=== PATIENT | female | born 1995 | race Caucasian/White ===

== ENCOUNTER → 2018-07-09 | Outpatient (CLI) | payer OTHER ==
[2018-07-09 13:22] LABS: BACTERIA (WET MOUNT) 3+ BACTERIA SEEN; EPITHELIALS (WET MOUNT) 3+ EPITHELIALS SEEN; RBCS (WET MOUNT) RARE RBCS SEEN; T.VAGINALIS (WET MOUNT) NO TRICHOMONAS SEEN; WBCS (WET MOUNT) FEW WBCS SEEN; YEAST (WET MOUNT) YEAST SEEN
[2018-07-09 15:07] LABS: CHLAM PCR NOT DETECTED (NOT DETECT); GON PCR NOT DETECTED (NOT DETECT)
== END ==
LOC: LAB 12:36
PROVIDERS: ATTEND Nurse Practitioner Acute Care
DX: N89.8 Other specified noninflammatory disorders of vagina (principal); R10.84 Generalized abdominal pain; R30.0 Dysuria
CPT/HCPCS: 87086; 87210; 87491; 87591

== ENCOUNTER → 2018-07-29 | Outpatient (CLI) | payer OTHER, MEDICAID ==
[2018-07-29 12:24] LABS: ABSOLUTE BASOPHILS # (AUTO) 0.1 10^3/uL (0.0-0.2); ABSOLUTE EOSINOPHILS # (AUTO) 0.1 10^3/uL (0.0-0.6); ABSOLUTE LYMPHOCYTES (AUTO) 2.2 10^3/uL (0.5-4.7); ABSOLUTE MONOCYTES (AUTO) 0.6 10^3/uL (0.1-1.4); ABSOLUTE NEUT (AUTO) 4.1 10^3/uL (1.7-8.2); BASOPHILS % (AUTO) 0.8 % (0-2); EOSINOPHILS % (AUTO) 1.2 % (0-6); HEMATOCRIT 41.8 % (36.0-47.0); HEMOGLOBIN 13.9 g/dL (12.0-15.5); LYMPHOCYTES % (AUTO) 30.8 % (13-45); MEAN CORPUSCULAR HEMOGLOBIN 27.4 pg (27.0-33.4); MEAN CORPUSCULAR HGB CONC 33.3 g/dL (32.0-36.0); MEAN CORPUSCULAR VOLUME 82 fl (80-97); PLATELET COUNT 295 10^3/uL (150-450); RED BLOOD COUNT 5.08 10^6/uL (3.72-5.28); RED CELL DISTRIBUTION WIDTH 14.8 % (11.5-14.0); SEGMENTED NEUTROPHILS % (AUTO) 58.2 % (42-78); TOTAL CELLS COUNTED % (AUTO) 100 %; WHITE BLOOD COUNT 7.1 10^3/uL (4.0-10.5)
--- NOTE | 2018-07-29 12:35 | RADIOLOGY REPORT (SQ) ---
EXAM DESCRIPTION: ACUTE ABDOMEN SERIES COMPLETED DATE/TIME: 07/29/2018 12:12 pm REASON FOR STUDY: UNSPECIFIED ABD. PAIN R10.9 UNSPECIFIED ABDOMINAL PAIN COMPARISON: AP chest 07/12/2013 CT abdomen pelvis 07/13/2013 NUMBER OF VIEWS: Three views. TECHNIQUE: Frontal chest, supine abdomen and upright abdomen radiographic images acquired. LIMITATIONS: None. FINDINGS: CHEST: Lungs clear of infiltrates. Cardiac silhouette size, mahesh unremarkable. No pleura l effusion or pneumothorax. FREE AIR: None. No abnormal gas collections. BOWEL GAS PATTERN: Nonspecific nonobstructive bowel gas pattern with a area in single bowel loop in t he mid epigastrium. There are anastomotic doc in the pelvis without rectal air bubble. CALCIFICATIONS: No suspicious calcifications. HARDWARE: Surgical clips in the pelvis from bowel surgery and anastomoses. Post total colectomy by ronal bonilla. SOFT TISSUES: No gross mass or suggestion of organomegaly. BONES: No acute fracture. No worrisome bone lesions. OTHER: No other significant finding. IMPRESSION: Single air-filled loop of bowel in the mid epigastrium, similar compared to CT 07/13/2013 . Post total abdominal colectomy with surgical clips in the pelvis No acute cardiopulmonary findings TECHNICAL DOCUMENTATION: JOB ID: [id number] [employer]- All Rights Reserved Reading location - IP/workstation name: [email or web address]
[2018-07-29 12:57] LABS: ALANINE AMINOTRANSFERASE 54 U/L (9-52); ALBUMIN 4.6 g/dL (3.5-5.0); ALKALINE PHOSPHATASE 62 U/L (38-126); ANION GAP 14 (5-19); ASPARTATE AMINO TRANSFERASE 33 U/L (14-36); BILIRUBIN,DIRECT 0.3 mg/dL (0.0-0.4); BILIRUBIN,TOTAL 0.6 mg/dL (0.2-1.3); BLOOD UREA NITROGEN 12 mg/dL (7-20); CALCIUM 9.9 mg/dL (8.4-10.2); CARBON DIOXIDE 25 mmol/L (22-30); CHLORIDE 106 mmol/L (98-107); GLUCOSE 84 mg/dL (75-110); POTASSIUM 4.9 mmol/L (3.6-5.0); SODIUM 144.8 mmol/L (137-145); TOTAL PROTEIN 7.8 g/dL (6.3-8.2)
[2018-07-29 14:04] LABS: CHLAM PCR NOT DETECTED (NOT DETECT); GON PCR NOT DETECTED (NOT DETECT)
== END ==
LOC: OD 11:32
PROVIDERS: ATTEND Nurse Practitioner Family
DX: R10.9 Unspecified abdominal pain (principal)
CPT/HCPCS: 36415; 74022; 80053; 85025; 87086; 87491; 87591

== ENCOUNTER 2018-08-05 06:48 | Emergency (ER) | payer OTHER, MEDICAID ==
--- NOTE | 2018-08-05 08:30 | ER Document Report ---
ED General - General Chief Complaint: Abdominal Pain Stated Complaint: ABDOMINAL PAIN Time Seen by Provider: 08/05/18 08:09 Primary Care Provider: JHOANA ABEBE NP [NO LOCAL MD] - Follow up as needed Notes: 23-year-old female with remote history of a colectomy as a child presents to the emergency department for stomach pains, vaginal pains x4 weeks. She was seen at an urgent care approximately 1 month ago diagnosed with a UTI and was on 2 different antibiotics. She is still complaining of the same type of symptoms. She historically has taken probiotics when she had abdominal pain and when she did this morning she vomited, started crying, then vomited again. She is sexually active, last activity 4 weeks ago, but has been with multiple partners recently. She denies fevers or chills, complains of nausea, states her abdominal pain is epigastric and suprapubic, denies vaginal discharge. She states that it still feels like the UTI is there even though she is been treated and had a follow-up urinalysis which was negative. Last BM today. She denies headache or neck stiffness, sore throat, dizziness or lightheadedness, back pain or flank pain, numbness or tingling extremities. No other complaints TRAVEL OUTSIDE OF THE [place] IN LAST 30 DAYS: No - Related Data Allergies/Adverse Reactions: sulfamethoxazole [From Septra] Allergy (Verified 04/16/14 03:04) trimethoprim [From Septra] Allergy (Verified 04/16/14 03:04) tegaderm Adverse Reaction (Uncoded 04/16/14 03:04) Past Medical History - Social History Smoking Status: Unknown if Ever Smoked Family History: None, Other - FAP Past Surgical History: Reports: Hx Abdominal Surgery - colon removed 5 yrs ago - Immunizations Immunizations up to date: Yes Review of Systems - Review of Systems Constitutional: See HPI EENT: See HPI Cardiovascular: See HPI Respiratory: See HPI Gastrointestinal: See HPI Genitourinary: See HPI Female Genitourinary: See HPI Musculoskeletal: No symptoms reported Skin: No symptoms reported Hematologic/Lymphatic: No symptoms reported Neurological/Psychological: See HPI Physical Exam - Vital signs Vitals: Temp Pulse Resp BP Pulse Ox 98.1 F 108 H 16 132/100 H 96 08/05/18 07:01 08/05/18 07:01 08/05/18 07:01 08/05/18 07:01 08/05/18 07:01 - Notes Notes: PHYSICAL EXAMINATION: Reviewed vital signs and charting by RN GENERAL: Alert, interacts well. No acute distress. HEAD: Normocephalic, atraumatic. EYES: Pupils equal and round. Extraocular movements intact. ENT: Oral mucosa moist, tongue midline. NECK: Full range of motion. Supple. Trachea midline. LUNGS: Clear to auscultation bilaterally, no wheezes, rales, or rhonchi. No respiratory distress. HEART: Regular rate and rhythm. No murmur ABDOMEN: soft, epigastric tenderness and suprapubic tenderness. Non-distended. Bowel sounds present. no McBurney's point tenderness, no Spear sign. EXTREMITIES: Moves all 4 extremities spontaneously. No edema, No cyanosis. Normal distal neurovascular exam BACK: No CVAT NEUROLOGIC: Oriented and appropriate. Normal speech. PSYCH: Normal affect, normal mood. SKIN: Warm, dry, normal turgor. No rashes or lesions noted. Course - Re-evaluation Re-evalutation: 08/05/18 09:36 Pelvic exam performed, no cervical motion tenderness, cervix visualized and at the 10 to 12 o'clock position was a 3 mm area of erythema slightly friable. Green discharge and a small amount of blood coming from the os. Lab work has all returned and patient is negative for a urinary tract infection, trichomonas negative, no yeast infection. Gonorrhea and chlamydia still pending. I will discuss with the patient if she wants to get treated prophylactically or if she wants to wait for results. Because patient is having bleeding from cervical os and her last menstrual period was 2 weeks ago I will order a transvaginal ultrasound with Doppler. 08/05/18 09:42 Patient wants to get treated prophylactically for gonorrhea and chlamydia. 08/05/18 12:43 Transvaginal ultrasound unremarkable. At this time I will refer her to [facility] for follow-up on testing. I did notice what appeared to be a lesion on her cervix so unclear if this is from an STI or other etiology. There is no emergent condition at this time, no TOA or ectopic visualized on ultrasound, patient does not have a surgical abdomen, no other concerns at this time. Stable for discharge. - Vital Signs Vital signs: Temp Pulse Resp BP Pulse Ox 98.0 F 92 16 119/81 98 08/05/18 11:36 08/05/18 11:36 08/05/18 11:36 08/05/18 11:36 08/05/18 11:36 - Laboratory Result Diagrams: 08/05/18 08:50 08/05/18 08:50 Laboratory results interpreted by me: 08/05/18 08/05/18 08/05/18 08:50 08:50 08:50 RBC 5.56 H RDW 15.2 H AST 41 H ALT 69 H Urine Protein 30 H Urine Ketones TRACE H Discharge - Discharge Clinical Impression: Pelvic pain Abdominal pain Qualifiers: Abdominal location: lower abdomen, unspecified Qualified Code(s): R10.30 - Lower abdominal pain, unspecified Vomiting Qualifiers: Vomiting type: unspecified Vomiting Intractability: non-intractable Nausea presence: with nausea Qualified Code(s): R11.2 - Nausea with vomiting, unspecified Condition: Good Disposition: HOME, SELF-CARE Additional Instructions: You are seen in the emergency department this morning for abdominal and pelvic pain. Is unclear why you are having the symptoms because she did not have a urinary tract infection. So were negative for trichomonas and for a yeast infection. You did not have bacterial vaginosis. Your gonorrhea and chlamydia are negative. It is important to follow-up with your primary care doctor to follow-up for this problem as there is no acute reason to keep you in the hos pital today. If you develop intractable vomiting, intractable nausea, severe abdominal pain, severe vaginal bleeding, copious vaginal discharge with severe pelvic pain, you are unable to urinate at all, bowel incontinence, or have any other concerns please immediately return to the emergency department. I have provided referral for you to [facility]. You can call them to arrange for follow-up. Referrals: JHOANA ABEBE NP [NO LOCAL MD] - Follow up as needed [facility] [Provider Group] - Follow up as needed
[2018-08-05 09:00] LABS: ABSOLUTE EOSINOPHILS # (AUTO) 0.1 10^3/uL (0.0-0.6); ABSOLUTE LYMPHOCYTES (AUTO) 1.8 10^3/uL (0.5-4.7); ABSOLUTE MONOCYTES (AUTO) 0.9 10^3/uL (0.1-1.4); ABSOLUTE NEUT (AUTO) 7.5 10^3/uL (1.7-8.2); BASOPHILS % (AUTO) 0.2 % (0-2); EOSINOPHILS % (AUTO) 0.8 % (0-6); HEMATOCRIT 45.7 % (36.0-47.0); HEMOGLOBIN 15.3 g/dL (12.0-15.5); LYMPHOCYTES % (AUTO) 17.3 % (13-45); MEAN CORPUSCULAR HEMOGLOBIN 27.4 pg (27.0-33.4); MEAN CORPUSCULAR HGB CONC 33.4 g/dL (32.0-36.0); MEAN CORPUSCULAR VOLUME 82 fl (80-97); MONOCYTES % (AUTO) 8.3 % (3-13); PLATELET COUNT 281 10^3/uL (150-450); RED BLOOD COUNT 5.56 10^6/uL (3.72-5.28); RED CELL DISTRIBUTION WIDTH 15.2 % (11.5-14.0); SEGMENTED NEUTROPHILS % (AUTO) 73.4 % (42-78); TOTAL CELLS COUNTED % (AUTO) 100 %; WHITE BLOOD COUNT 10.3 10^3/uL (4.0-10.5)
[2018-08-05 09:18] LABS: APPEARANCE,URINE SLIGHTLY-CLOUDY; BILIRUBIN,URINE NEGATIVE (NEGATIVE); COLOR,URINE AMBER; GLUCOSE, URINE NEGATIVE (NEGATIVE); KETONES,URINE TRACE mg/dL (NEGATIVE); LEUKOCYTE ESTERASE,URINE NEGATIVE (NEGATIVE); NITRITE,URINE NEGATIVE (NEGATIVE); PROTEIN,URINE 30 mg/dL (NEGATIVE); UROBILINOGEN,URINE NEGATIVE mg/dL (<2.0)
[2018-08-05 09:24] LABS: ALANINE AMINOTRANSFERASE 69 U/L (9-52); ALBUMIN 4.6 g/dL (3.5-5.0); ALKALINE PHOSPHATASE 68 U/L (38-126); ANION GAP 13 (5-19); ASPARTATE AMINO TRANSFERASE 41 U/L (14-36); BILIRUBIN,DIRECT 0.3 mg/dL (0.0-0.4); BILIRUBIN,TOTAL 0.6 mg/dL (0.2-1.3); BLOOD UREA NITROGEN 10 mg/dL (7-20); CALCIUM 9.8 mg/dL (8.4-10.2); CARBON DIOXIDE 25 mmol/L (22-30); CHLORIDE 106 mmol/L (98-107); GLUCOSE 99 mg/dL (75-110); LIPASE 107.7 U/L (23-300); SODIUM 143.7 mmol/L (137-145); TOTAL PROTEIN 7.9 g/dL (6.3-8.2)
[2018-08-05 09:32] LABS: T.VAGINALIS (WET MOUNT) NO TRICHOMONAS SEEN; WBCS (WET MOUNT) RARE WBCS SEEN; YEAST (WET MOUNT) NO YEAST SEEN
[2018-08-05 09:33] LABS: RBCS (WET MOUNT) FEW RBCS SEEN
[2018-08-05] MEDS ORDERED: ONDANSETRON ODT 4 MG TAB (6 TAB/ER DISP) PO PRN (09:38)
[2018-08-05] MEDS ORDERED: AZITHROMYCIN 250 MG TABLET PO ONE (09:44)
[2018-08-05] MEDS ORDERED: CEFTRIAXONE 1 GM/D5W RTU 1 GM/50 ML RTUPB IV ONE (09:44)
[2018-08-05 11:00] LABS: CHLAM PCR NOT DETECTED (NOT DETECT); GON PCR NOT DETECTED (NOT DETECT)
--- NOTE | 2018-08-05 12:22 | RADIOLOGY REPORT (SQ) ---
EXAM DESCRIPTION: U/S NON OB PEL TV W/DOPPLER COMPLETED DATE/TIME: 08/05/2018 12:07 pm REASON FOR STUDY: pelvic pain COMPARISON: None. TECHNIQUE: Dynamic and static grayscale images acquired of the pelvis via transvaginal approach and recorded on PACS. Additional selected color Doppler and spectral images recorded. LIMITATIONS: None. FINDINGS: UTERUS: Contour normal. No mass. ENDOMETRIAL STRIPE: No focal or generalized thickening. No masses. CERVIX: Small nabothian cysts. RIGHT OVARY AND DOPPLER: Normal size. No worrisome masses. Normal follicular pattern. Normal arteri al vascular flow without evidence for torsion. LEFT OVARY AND DOPPLER: Normal size. No worrisome masses. Normal follicular pattern. Normal arteria l vascular flow without evidence for torsion. FREE FLUID: Trace free fluid adjacent to the left ovary. OTHER: No other significant finding. MEASUREMENTS: UTERUS: 8.5 x 5.8 x 4.1 cm ENDOMETRIAL STRIPE: 11 mm RIGHT OVARY: 3.3 x 2.5 x 2.2 cm LEFT OVARY: 4.3 x 2.2 x 2.5 cm IMPRESSION: Relatively unremarkable study. Trace free fluid adjacent to the left ovary. Ovaries lo ok normal, however. TECHNICAL DOCUMENTATION: JOB ID: [id number] [employer]- All Rights Reserved Rev-08/15 Reading location - IP/workstation name: [email or web address]
[2018-08-05 12:56] VITALS: BP 124/77
== END 2018-08-05 12:58 | disposition home or self-care (01) ==
LOC: ER 06:48
DX: R10.2 Pelvic and perineal pain (principal); R10.13 Epigastric pain; R11.2 Nausea with vomiting, unspecified; Z90.49 Acquired absence of other specified parts of digestive tract; Z87.440 Personal history of urinary (tract) infections; Z88.1 Allergy status to other antibiotic agents
CPT/HCPCS: 99284; 96365; 36415; 87210; 83690; 85025; 81025; 80053; 81001; 87491; 87591; 76830; 93976; J0696

== ENCOUNTER 2018-08-11 08:47 | Emergency (ER) | payer OTHER, MEDICAID ==
[2018-08-11] MEDS ORDERED: ONDANSETRON HCL INJ/PF 4 MG/2 ML SDV IV ONE ×2 (09:16→09:38)
--- NOTE | 2018-08-11 09:18 | ER Document Report ---
ED Medical Screen (RME) - General Chief Complaint: Abdominal Pain Stated Complaint: ABDOMINAL PAIN Time Seen by Provider: 08/11/18 09:14 Mode of Arrival: Ambulatory Information source: Patient Notes: 23-year-old female presented to ED with her stomach upset vomited x1 feels like she needs to vomit now. States she cannot walk with her heart racing. She states she is lost a lot of weight over a little bit of time. 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 She does not drink smoke or use any drugs she goes to [facility] and lives with her parents. She is alert oriented respirations regular and unlabored heart rate is between 140 and 160 apically. I have greeted and performed a rapid initial assessment of this patient. A comprehensive ED assessment and evaluation of the patient, analysis of test results and completion of medical decision making process will be conducted by an additional ED providers. Dictation of this chart was performed using voice recognition software; therefore, there may be some unintended grammatical errors. TRAVEL OUTSIDE OF THE [place] IN LAST 30 DAYS: No - Related Data Allergies/Adverse Reactions: sulfamethoxazole [From Septra] Allergy (Verified 08/11/18 08:50) trimethoprim [From Novra] Allergy (Verified 08/11/18 08:50) tegaderm Adverse Reaction (Uncoded 08/11/18 08:50) Past Medical History - Social History Frequency of alcohol use: None Drug Abuse: None Renal/ Medical History: Denies: Hx Peritoneal Dialysis Past Surgical History: Reports: Hx Abdominal Surgery - colon removed 5 yrs ago - Immunizations Immunizations up to date: Yes Physical Exam - Vital signs Vitals: Temp Pulse Resp BP Pulse Ox 97.6 F 165 H 19 62/36 L 98 08/11/18 09:07 08/11/18 09:07 08/11/18 09:07 08/11/18 09:07 08/11/18 09:07 Course - Vital Signs Vital signs: Temp Pulse Resp BP Pulse Ox 97.6 F 165 H 19 62/36 L 98 08/11/18 09:07 08/11/18 09:07 08/11/18 09:07 08/11/18 09:07 08/11/18 09:07
[2018-08-11] MEDS: NORMAL SALINE 1000 ML 1,000 ML IV PRN ×2 (09:30→10:53)
--- NOTE | 2018-08-11 09:31 | ER Document Report ---
ED General - General Chief Complaint: Abdominal Pain Stated Complaint: ABDOMINAL PAIN Time Seen by Provider: 08/11/18 09:14 Mode of Arrival: Ambulatory TRAVEL OUTSIDE OF THE [place] IN LAST 30 DAYS: No - HPI Patient complains to provider of: Shortness of breath, abdominal pain Notes: 83-year-old female presents with increasing shortness of breath and decreased exercise tolerance for the last 3 days. She says this is also associated with lower abdominal pain 10/10 throbbing in nature without radiation nothing makes it better or worse. Patient has a history of an anastomosis leak and she says this feels similar to her previous anastomosis leak Patient states she is now so short of breath when she walks she is unable to go across her kitchen. Required to sit down and lay down to catch her breath. Patient denies chest pain with this profound shortness of breath. Patient has no history of cardiac disease, thyroid disease. 23-year-old female did have multiple surgeries as a pediatric patients with movement of her large bowel. Has history of leakage after the anastomosis approximately 1 decade ago. Patient states she had similar symptoms to this when she had an infection in her abdomen. Patient was seen on Friday in the emergency department diagnosed with ovarian cyst as etiology of some of her pain with some free fluid in her abdomen. - Related Data Allergies/Adverse Reactions: sulfamethoxazole [From Novra] Allergy (Verified 08/11/18 08:50) trimethoprim [From Novra] Allergy (Verified 08/11/18 08:50) tegaderm Adverse Reaction (Uncoded 08/11/18 08:50) Past Medical History - General Information source: Patient - Social History Smoking Status: Never Smoker Frequency of alcohol use: None Drug Abuse: None Family History: None, Other - FAP Patient has suicidal ideation: No Patient has homicidal ideation: No Renal/ Medical History: Denies: Hx Peritoneal Dialysis Past Surgical History: Reports: Hx Abdominal Surgery - colon removed 5 yrs ago - Immunizations Immunizations up to date: Yes Review of Systems - Review of Systems Notes: REVIEW OF SYSTEMS: CONSTITUTIONAL: -fevers, -chills EENT: -eye pain, -difficulty swallowing, -nasal congestion CARDIOVASCULAR: -chest pain, -syncope. RESPIRATORY: -cough, positive SOB GASTROINTESTINAL: positive abdominal pain, positive nausea, -vomiting, -diarrhea GENITOURINARY: -dysuria, -hematuria MUSCULOSKELETAL: -back pain, -neck pain SKIN: -rash or skin lesions. HEMATOLOGIC: -easy bruising or bleeding. LYMPHATIC: -swollen, enlarged glands. NEUROLOGICAL: -altered mental status or loss of consciousness, -headache, - neurologic symptoms PSYCHIATRIC: -anxiety, -depression. ALL OTHER SYSTEMS REVIEWED AND NEGATIVE. Physical Exam - Vital signs Vitals: Temp Pulse Resp BP Pulse Ox 97.6 F 165 H 19 62/36 L 98 08/11/18 09:07 08/11/18 09:07 08/11/18 09:07 08/11/18 09:07 08/11/18 09:07 - Notes Notes: PHYSICAL EXAMINATION: GENERAL: Well-appearing, well-nourished and in severe acute distress. HEAD: Atraumatic, normocephalic. EYES: Pupils equal round and reactive to light, extraocular movements intact, sclera anicteric, conjunctiva are normal. ENT: nares patent, oropharynx clear without exudates. Moist mucous membranes. NECK: Normal range of motion, supple without lymphadenopathy LUNGS: Breath sounds clear to auscultation bilaterally and equal. No wheezes rales or rhonchi. HEART: tachycardia and rhythm without murmurs ABDOMEN: Soft, tender throughout lower abdomen no guarding, no rebound. No masses appreciated. EXTREMITIES: Normal range of motion, no pitting or edema. No cyanosis. NEUROLOGICAL: Cranial nerves grossly intact. Normal speech, normal gait. Normal sensory and motor exams. PSYCH: Normal mood, normal affect. SKIN: Warm, Dry, normal turgor, no rashes or lesions noted. Course - Re-evaluation Re-evalutation: 08/11/18 09:45 23-year-old male presents found tachycardia. Blood pressure repeated systolic is 115 no hypotension. Will initiate fluid resuscitation antiemetics extensive lab work-up and imaging study. 08/11/18 13:03 Patient found to have profound kidney injury, leukocytosis. Patient's heart rate is greatly improved after 2 L normal saline solution per Calcium mildly elevated as well. Fluid should correct as per Given patient's symptoms of abdominal pain. CAT scan abdomen pelvis performed. CAT scan has some critical findings of possible air collection near the anastomosis of her ileoanal anastomosis. Given her leukocytosis, tachycardia and acute kidney injury. Concern for possible endorgan damage from sepsis. Will initiate antibiotic therapy with ceftriaxone and metronidazole vancomycin. Consult our local surgeons here. In reviewing the images case and labs. They state this may be outside the spectrum of there especially. Recommend evaluation by colorectal employment specialist/program manager. Resection with patient she has had all of her surgeries performed at the [facility]. Consult [facility]. Discussed case with rectal surgeon [facility]. Patient will be admitted to a floor bed on their service. Will make sure to include CT imaging. - Vital Signs Vital signs: Temp Pulse Resp BP Pulse Ox 97.6 F 165 H 29 H 128/89 H 97 08/11/18 09:07 08/11/18 09:07 08/11/18 11:00 08/11/18 10:27 08/11/18 10:27 - Laboratory Result Diagrams: 08/11/18 09:30 08/11/18 09:30 Laboratory results interpreted by me: 08/11/18 08/11/18 08/11/18 09:30 09:30 09:30 WBC 13.4 H RBC 6.66 H Hgb 18.1 H Hct 54.1 H RDW 15.1 H Plt Count 453 H Absolute Neutrophils 9.5 H Absolute Monocytes 1.6 H Potassium 5.1 H Chloride 95 L Carbon Dioxide 19 L Anion Gap 25 H BUN 29 H Creatinine 1.91 H Est GFR ( Amer) 40 L Est GFR (Non-Af Amer) 33 L Glucose 179 H Calcium 10.9 H AST 51 H ALT 65 H Total Protein 10.2 H Albumin 5.7 H TSH 5.63 H - EKG Interpretation by Me EKG shows normal: Sinus rhythm Rate: Tachycardia Rhythm: NSR Additional EKG results interpreted by me: 08/11/18 09:49 Patient has prolonged QTC at 451, no ST elevations or depressions, no pathologic T wave inversions Discharge - Discharge Clinical Impression: Acute kidney injury, Leak of anastomosis between gastrointestinal structures Leukocytosis Qualifiers: Leukocytosis type: other Qualified Code(s): D72.828 - Other elevated white blood cell count Condition: Stable Disposition: Tertiary-Other Admitting Provider: [facility] Unit Admitted: Medical Floor
[2018-08-11 09:48] LABS: ABSOLUTE BASOPHILS # (AUTO) 0.1 10^3/uL (0.0-0.2); ABSOLUTE EOSINOPHILS # (AUTO) 0.1 10^3/uL (0.0-0.6); ABSOLUTE LYMPHOCYTES (AUTO) 2.1 10^3/uL (0.5-4.7); ABSOLUTE MONOCYTES (AUTO) 1.6 10^3/uL (0.1-1.4); ABSOLUTE NEUT (AUTO) 9.5 10^3/uL (1.7-8.2); BASOPHILS % (AUTO) 0.5 % (0-2); EOSINOPHILS % (AUTO) 0.7 % (0-6); HEMATOCRIT 54.1 % (36.0-47.0); HEMOGLOBIN 18.1 g/dL (12.0-15.5); LYMPHOCYTES % (AUTO) 15.9 % (13-45); MEAN CORPUSCULAR HEMOGLOBIN 27.2 pg (27.0-33.4); MEAN CORPUSCULAR HGB CONC 33.5 g/dL (32.0-36.0); MEAN CORPUSCULAR VOLUME 81 fl (80-97); MONOCYTES % (AUTO) 12.3 % (3-13); PLATELET COUNT 453 10^3/uL (150-450); RED BLOOD COUNT 6.66 10^6/uL (3.72-5.28); RED CELL DISTRIBUTION WIDTH 15.1 % (11.5-14.0); SEGMENTED NEUTROPHILS % (AUTO) 70.6 % (42-78); TOTAL CELLS COUNTED % (AUTO) 100 %; WHITE BLOOD COUNT 13.4 10^3/uL (4.0-10.5)
--- NOTE | 2018-08-11 10:14 | RADIOLOGY REPORT (SQ) ---
EXAM DESCRIPTION: CHEST 2 VIEWS COMPLETED DATE/TIME: 08/11/2018 10:05 am REASON FOR STUDY: sob COMPARISON: 07/12/2013 EXAM PARAMETERS: NUMBER OF VIEWS: two views TECHNIQUE: Digital Frontal and Lateral radiographic views of the chest acquired. RADIATION DOSE: NA LIMITATIONS: none FINDINGS: LUNGS AND PLEURA: No opacities, masses or pneumothorax. No pleural effusion. MEDIASTINUM AND HILAR STRUCTURES: No masses or contour abnormalities. HEART AND VASCULAR STRUCTURES: Heart normal size. No evidence for failure. BONES: No acute findings. HARDWARE: None in the chest. OTHER: No other significant finding. IMPRESSION: No acute abnormality of the lungs. No focal airspace opacity. TECHNICAL DOCUMENTATION: JOB ID: [id number] [employer]- All Rights Reserved Reading location - IP/workstation name: [email or web address]
[2018-08-11 10:15] LABS: ALANINE AMINOTRANSFERASE 65 U/L (9-52); ALBUMIN 5.7 g/dL (3.5-5.0); ALKALINE PHOSPHATASE 85 U/L (38-126); ASPARTATE AMINO TRANSFERASE 51 U/L (14-36); BILIRUBIN,DIRECT 0.4 mg/dL (0.0-0.4); BILIRUBIN,TOTAL 1.1 mg/dL (0.2-1.3); BLOOD UREA NITROGEN 29 mg/dL (7-20); CALCIUM 10.9 mg/dL (8.4-10.2); GLUCOSE 179 mg/dL (75-110); LIPASE 107.7 U/L (23-300); POTASSIUM 5.1 mmol/L (3.6-5.0); TOTAL PROTEIN 10.2 g/dL (6.3-8.2)
[2018-08-11 10:27] LABS: CREATINE KINASE MB < 0.22 ng/mL (<4.55); TROPONIN I < 0.012 ng/mL
[2018-08-11 10:33] LABS: CARBON DIOXIDE 19 mmol/L (22-30); CHLORIDE 95 mmol/L (98-107); SODIUM 138.9 mmol/L (137-145)
[2018-08-11 10:34] LABS: ANION GAP 25 (5-19)
[2018-08-11 10:59] LABS: FREE T3 5.11 pg/mL (2.77-5.27); FREE T4 (FREE THYROXINE) 1.04 ng/dL (0.78-2.19); THYROID STIMULATING HORMONE 5.63 uIU/mL (0.47-4.68)
--- NOTE | 2018-08-11 11:01 | RADIOLOGY REPORT (SQ) ---
EXAM DESCRIPTION: CT ABD/PELVIS WITH IV ONLY; CTA CHEST COMPLETED DATE/TIME: 08/11/2018 10:30 am; 08/11/2018 10:29 am REASON FOR STUDY: abdominal pain; SOB COMPARISON: 07/13/2013 CONTRAST TYPE AND DOSE: contrast/concentration: Isovue 350.00 mg/ml; Total Contrast Delivered: 75.0 ml; Total Saline Delivered: 90.0 ml RENAL FUNCTION: None required. The patient is less than 50 years old. TECHNIQUE: CT chest angiogram pulmonary embolism protocol performed using helical scanning technique with dynamic intravenous contrast injection. Images reviewed with lung, soft tissue and bone window s. Reconstructed coronal and sagittal MPR images reviewed. Multiplanar 3D reformats were constructed . All images stored on PACS. CT scan of the abdomen and pelvis performed with intravenous and oral contrast using helical scanning technique with dynamic intravenous contrast injection. Images reviewed with lung, soft tissue and b one windows. Reconstructed coronal and sagittal MPR images reviewed. Delayed images for evaluation of the urinary system also acquired and evaluated. All images stored on PACS. All CT scanners at this facility use dose modulation, iterative reconstruction, and/or weight based d osing when appropriate to reduce radiation dose to as low as reasonably achievable (ALARA). [facility]: Dose Right [facility]: CareDose [facility]: Dose Right [facility]: Teradose 4D [facility]: Smart [employer] RADIATION DOSE: CT Rad equipment meets quality standard of care and radiation dose reduction techniq ues were employed. CTDIvol: 14.1 - 16.5 mGy. DLP: 2157 mGy-cm. . LIMITATIONS: None. FINDINGS: CHEST: AXILLAE: No adenopathy. CHEST WALL: No masses. No subcutaneous air. LUNGS: No nodules or masses. No pneumothorax. No infiltrates. PLEURA: No effusions. No calcifications. THYROID: No masses or significant asymmetry. HILAR AND MEDIASTINAL STRUCTURES: No identified masses or abnormal nodes. AORTA AND GREAT VESSELS: No aneurysm. No dissection. PULMONARY ARTERIES: No identified pulmonary emboli. Study not optimized for the pulmonary arteries. HEART: No pericardial effusion. HARDWARE AND LIFELINES: None. BONES: No significant finding. OTHER: No other significant finding. ABDOMEN AND PELVIS: LIVER: Hepatomegaly and hepatic steatosis. SPLEEN: Normal size. No focal lesions. PANCREAS: No masses. No significant calcifications. No adjacent inflammation or peripancreatic flui d collections. Pancreatic duct not dilated. GALLBLADDER: No identified stones by CT criteria. No inflammatory changes to suggest cholecystitis. ADRENAL GLANDS: No significant masses or asymmetry. RIGHT KIDNEY AND URETER: No solid masses. No significant calcifications. No hydronephrosis or hyd roureter. LEFT KIDNEY AND URETER: No solid masses. No significant calcifications. No hydronephrosis or hydr oureter. AORTA AND VESSELS: No aneurysm. No dissection. Renal arteries, SMA, celiac without stenosis. RETROPERITONEUM: No retroperitoneal adenopathy, hemorrhage or masses. LARGE AND SMALL BOWEL: No dilatation. No masses. No wall thickening. There are postoperative findi ngs of colectomy with ileoanal anastomosis. There is an air collection at the right aspect of the va ginal fornix adjacent to the colonic anastomosis (series 3, image 206). APPENDIX: Normal. ABDOMINAL WALL: No hernia or masses. PERITONEAL CAVITY: No free air. No free fluid. No peritoneal implants or masses. PELVIS: No mass or free fluid. Normal bladder. BONES: No significant or acute findings. OTHER: No other significant finding. IMPRESSION: 1. Negative examination for pulmonary embolism. 2. Hepatomegaly and hepatic steatosis. 3. There are postoperative findings of colectomy with ileoanal anastomosis. There is an air collecti on at the right aspect of the vaginal fornix adjacent to the colonic anastomosis, of uncertain signif icance. Anastomosis may be further interrogated by fluoroscopic barium enema or direct endoscopic vi sualization if there is clinical concern for abscess or fistula formation. TECHNICAL DOCUMENTATION: JOB ID: [id number] Quality ID # [id number]: Final reports with documentation of one or more dose reduction techniques (e.g., Au tomated exposure control, adjustment of the mA and/or kV according to patient size, use of iterative reconstruction technique) 2010 [employer]- All Rights Reserved Reading location - IP/workstation name: [email or web address]
[2018-08-11] MEDS ORDERED: VANCOMYCIN HCL INJ 1000 MG VIAL IV ONE (11:54)
[2018-08-11] MEDS ORDERED: METRONIDAZOLE RTU 500 MG/NS 100 ML IV ONE (11:54)
[2018-08-11] MEDS ORDERED: CEFTRIAXONE 1 GM/D5W RTU 1 GM/50 ML RTUPB IV ONE (12:30)
[2018-08-11 13:55] LABS: AMORPHOUS SEDIMENT,URINE TRACE /HPF; APPEARANCE,URINE TURBID; BILIRUBIN,URINE NEGATIVE (NEGATIVE); GLUCOSE, URINE NEGATIVE (NEGATIVE); KETONES,URINE 20 mg/dL (NEGATIVE); LEUKOCYTE ESTERASE,URINE NEGATIVE (NEGATIVE); NITRITE,URINE NEGATIVE (NEGATIVE); PROTEIN,URINE NEGATIVE (NEGATIVE); UROBILINOGEN,URINE NEGATIVE mg/dL (<2.0)
[2018-08-11 13:56] LABS: URINE SPECIFIC GRAVITY > 1.060
[2018-08-11 13:57] LABS: COLOR,URINE YELLOW
[2018-08-11] MEDS ORDERED: DIPHENHYDRAMINE HCL 50 MG/ML VIAL IV ONE (14:07)
--- NOTE | 2018-08-11 16:22 | EKG REPORT ---
SEVERITY:- ABNORMAL ECG - SINUS TACHYCARDIA INFERIOR Q WAVES, PROBABLY NORMAL VARIATION NONSPECIFIC T ABNORMALITIES, DIFFUSE LEADS : Confirmed by: Sal Nugent MD 11-Aug-2018 16:21:46
--- NOTE | 2018-08-11 16:23 | EKG REPORT ---
SEVERITY:- ABNORMAL ECG - SINUS TACHYCARDIA PROBABLE LEFT ATRIAL ABNORMALITY PROBABLE LVH WITH SECONDARY REPOL ABNRM : Confirmed by: Sal Nugent MD 11-Aug-2018 16:22:09
[2018-08-11] MEDS ORDERED: RINGERS SOLUTION,LACTATED 1,000 ML IV ONE (19:38)
[2018-08-11 23:05] VITALS: BP 115/89
== END 2018-08-11 23:07 | disposition short-term general hospital (02) ==
LOC: ER 08:47
DX: N17.9 Acute kidney failure, unspecified (principal); K63.89 Other specified diseases of intestine; D72.828 Other elevated white blood cell count; R10.9 Unspecified abdominal pain; R06.02 Shortness of breath; R10.30 Lower abdominal pain, unspecified; R00.0 Tachycardia, unspecified
CPT/HCPCS: 93005; 99285; 96361; 96375; 96365; 96367; 96368; 36415; 87040; 84439; 82553; 83690; 83735; 84443; 84703; 85025; 85730; 87077; 80053; 81001; 84484; 87186; 84481; 83605; 71046; 71275; 74177; 93010; J1200; J3490; J2405; J7030; J7120; J3370; J0696